=== PATIENT | male | born 1950 | race Caucasian/White ===

== ENCOUNTER → 2016-11-06 | Outpatient (CLI) | payer MEDICARE | LOC: CT 08:23 | DX: F17.210 Nicotine dependence, cigarettes, uncomplicated (principal); R91.8 Other nonspecific abnormal finding of lung field | CPT/HCPCS: G0297 ==

== ENCOUNTER → 2021-04-29 | Outpatient (CLI) | payer OTHER, MEDICARE ==
[~2021-04-29] MED LIST: AVODART0.5 MG PO; COZAAR50 MG PO; FLOMAX0.4 MG PO; MOBIC15 MG PO; PROAIR HFA8.5 GM INH; SYMBICORT 160-1 INHA INH; SYNTHROID50 MCG PO; ZOCOR20 MG PO
== END ==
LOC: KOH-I 13:36
DX: Z87.891 Personal history of nicotine dependence (principal); R91.8 Other nonspecific abnormal finding of lung field
CPT/HCPCS: 71271

== ENCOUNTER → 2021-09-30 | Outpatient (CLI) | payer MEDICARE | LOC: EXRD 12:23 | DX: R09.89 Other specified symptoms and signs involving the circulatory and respiratory systems (principal); R51.9 Headache, unspecified; I65.23 Occlusion and stenosis of bilateral carotid arteries | CPT/HCPCS: 93880 ==